=== PATIENT | female | born 1990 | race Caucasian/White ===

== ENCOUNTER 2019-09-06 19:43 | Emergency (ER) | payer OTHER ==
[~2019-09-06] VITALS: Ht 160 cm; Wt 61.2 kg
[2019-09-06 19:51] VITALS: BP_SYST 115
--- NOTE | 2019-09-06 19:55 | NUR ---
Pt DEMARCO YOUNG, placed to [facility] chair 1. Report given to JOESPH Bertrand.
--- NOTE | 2019-09-06 20:00 | NUR ---
Pt BIB [facility] to ED needing med clearance. No other complaints and or injuries noted. VSS no s/s of acute distress Resting on gurney rails up
--- NOTE | 2019-09-06 20:10 | NUR ---
Dr. Adrian bedside for Pt eval
--- NOTE | 2019-09-06 20:11 | NUR ---
Written and verbal consent obtained from patient for blood alcohol, name and verified by patient. Disinfected patient's skin with iodine that did not contain alcohol or other volatile organic compound. Collected the blood from the subject named by venipuncture, in the presence of [facility]. Used a sterile, dry hypodermic needle and dry vacuum blood collection. Two dry vacuum blood collection was supplied by the officer named above. Withdrew a specimen of blood from R Arm of the subject named above. Inverted both blood tube several times to ensure that the preservative and anticoagulant were thoroughly mixed in the blood specimen. I initialed both blood tube label for identification. The labeled blood tubes was handed directly to the Officer named above. The blood tubes stopper remained in place while I had possession of the blood tubes. The Officer placed tubes into envelope and sealed it in my presence. Envelope initialed by myself and Officer named above. Patient tolerated well, bandage applied, and bleeding controlled.
[2019-09-06 20:30] VITALS: BP_SYST 115
--- NOTE | 2019-09-06 20:30 | NUR ---
Patient given written and verbal discharge instructions and verbalizes understanding. ER MD discussed with patient the results and treatment provided. Patient in stable condition. ID arm band removed. Patient educated on pain management and to follow up with PMD. Pain Scale 0/10 Opportunity for questions provided and answered.
== END 2019-09-06 20:30 ==
LOC: SED 19:43
DX: S00.511A Abrasion of lip, initial encounter (principal); V89.2XXA Person injured in unspecified motor-vehicle accident, traffic, initial encounter; Y93.89 Activity, other specified; Y92.89 Other specified places as the place of occurrence of the external cause; Y99.8 Other external cause status
CPT/HCPCS: 99283